=== PATIENT | male | born 1960 | race Hispanic/Latino ===

== ENCOUNTER 2017-10-11 12:43 | Emergency (ER) | payer OTHER ==
[~2017-10-11] VITALS: Ht 165.1 cm; Wt 55.0 kg
[~2017-10-11 12:43] MED LIST: ULTRAM50 MG OR
[2017-10-11] MEDS ORDERED: NAPROSYN500 MG PO (14:06)
[2017-10-11 14:07] VITALS: BP 124/79
== END 2017-10-11 14:12 | disposition home or self-care (01) ==
LOC: ED 12:43
DX: S20.212A Contusion of left front wall of thorax, initial encounter (principal); F17.210 Nicotine dependence, cigarettes, uncomplicated; W17.89XA Other fall from one level to another, initial encounter; Y93.89 Activity, other specified; Y92.009 Unspecified place in unspecified non-institutional (private) residence as the place of occurrence of the external cause

== ENCOUNTER 2019-11-03 09:29 | Observation (INO) | payer OTHER ==
[~2019-11-03] VITALS: Ht 162.6 cm; Wt 61.9 kg
[~2019-11-03 09:29] MED LIST changes: +AUGMENTIN875 MG OR; +BACTRIM DS1 TAB PO; +CLEOCIN300 MG PO; +FLEXERIL OR; +NAPROSYN500 MG OR; +NAPROSYN500 MG PO; +NO MEDS
--- NOTE | 2019-11-03 09:30 | NUR ---
PT AMBULATED TO ROOM WITH WRIST AND LEG SHACKELS IN NO DISTRESS.
[2019-11-03] MEDS ORDERED: LASIX 40 MG TAB40 MG PO (09:51)
[2019-11-03] MEDS ORDERED: OLANZAPINE5 MG PO (09:52)
[2019-11-03] MEDS ORDERED: MELOXICAM15 MG PO (09:52)
--- NOTE | 2019-11-03 09:53 | NUR ---
[facility] CALLED AND MEDSD VERIFIED WITH NURSE FROM [facility]
--- NOTE | 2019-11-03 10:14 | NUR ---
PT STATES HAD SOME SOB INCREASING WITH LYING FLAT FOR LAST WEEK, TELE SHOWS SR SB RATE 41-60'S BP STABLE AND PT AFEBRILE, AWARE OF BRADYCARDIA, LAB WORK DRAWN AND R.T. CURRENTLY AT BEDSIDE FOR ABG.
[2019-11-03 10:16] LABS: HEMATOCRIT 39.2 % (39.0-50.0); HEMOGLOBIN 11.8 g/dl (14.0-18.0); IMMATURE GRANULOCYTES 0.4 % (0.0-5.0); MEAN CELL VOLUME 87.5 fL CALC (80.0-100.0); MEAN CORPUSCULAR HGB 26.3 pG CALC (26.0-32.0); MEAN CORPUSCULAR HGB CONC 30.1 g/dL CAL (32.0-36.0); NEUT# 5.56 thou/uL (1.82-7.42); RED BLOOD COUNT 4.48 mill/uL (4.70-6.10); RED CELL DISTRI WIDTH 14.5 % (11.5-15.5)
[2019-11-03 10:33] LABS: ALBUMIN 4.2 g/dL (3.2-5.0); ALKALINE PHOSPHATASE 75 u/l (38-126); BUN 17 mg/dL (9-20); BUN/CREATININE RATIO 18 (12-20 (CALC)); CHLORIDE 104 mmol/l (95-108); CREATININE 0.9 mg/dL (0.7-1.3); GFR > 60 ML/MIN (>=60 (CALC)); GFR FOR AFR.AMER. > 60 ML/MIN (>=60 (CALC)); POTASSIUM 4.1 mmol/l (3.5-5.1); SGOT/AST 22 u/l (17-59); SODIUM 139 mmol/l (137-146)
[2019-11-03 10:34] LABS: ANION GAP 10 (6-22 (CALC)); BILIRUBIN, TOTAL 1.3 mg/dL (0.0-1.4); CARBON DIOXIDE 29 mmol/l (22-30)
[2019-11-03 10:43] LABS: MYOGLOBIN 63 ng/mL (0 - 121)
--- NOTE | 2019-11-03 10:45 | NUR ---
PT RESTING GUARD REMAINS AT BEDSIDE CALL AUBREE MONZON, WILL CONTINUE TO MONITOR.
--- NOTE | 2019-11-03 11:30 | NUR ---
MD AWARE OF ABG RESULTS, PT REMAINS RESTING COMFORTQABLEY AWARE OF AWIATING RADIOLOGY RESULTS, GUARD REMAINS AT BEDSIDE
--- NOTE | 2019-11-03 12:15 | NUR ---
URINA; EMPTIED OF 100ML CLEAR YELLOW URINE, PT REQUESTING FOOD NOTIFIED
--- NOTE | 2019-11-03 12:20 | NUR ---
DIET ORDERED PT NOTIFIED
--- NOTE | 2019-11-03 12:26 | NUR ---
PT AWARE OF PLANNED ADMISSION
--- NOTE | 2019-11-03 12:45 | NUR ---
PT TOLERATED 100% OF LUNCH WITH NO COMPLAINTS, CALL AUBREE AMANDA REACH
--- NOTE | 2019-11-03 13:22 | NUR ---
REPORT CALLED TO LATISHA GIBBONS, ROOM 277 ASSIGNED.
--- NOTE | 2019-11-03 13:35 | NUR ---
PT ARRIVED TO MED/SURG ROOM 277 VIA WHEELCHAIR ACCOMPANIED BY X1 RICHIE AND JULIEN LORENZO;PT AMBULATED TO STANDING SCALE AND BEDSIDE WITH A STEADY GAIT;WT AND VS OBTAINED BY SURI SIDHU;PT A&O X3,ORIENTED TO ROOM AND CALL LIGHT SYSTEM;PT DENIES ANY CURRENT PAIN OR NEEDS;TELE MONITORING IN PLACE;PT ENCOURAGED TO CALL FOR ASSISTANCE IF NEEDED;FALL PRECAUTIONS IN PLACE WITH CALL LIGHT IN REACH;WILL CONTINUE TO MONITOR
--- NOTE | 2019-11-03 13:35 | NUR ---
PT TRASNPORTED TO MED SURG VIA WHEELCHAIR WITH GUARD AT SIDE AND TELE IN PLACE, ACCEPTING NURSE AT BEDSIDE ON ARRIVAL
--- NOTE | 2019-11-03 13:45 | NUR ---
PT RESTING IN BED AWAKE. PT IS ALERT AND ORIENTED X3. ADMISSION ASSESMENT COMPLETED AT THIS TIME. IV PATENT X1. PT STATES "I THINK I ATE TO MUCH SOUP AND THAT IS WHY I AM HERE". PT DENIES PMH, STATES THAT HE HAS A LONG HISTORY OF DRUG ABUSE AND ETOH ABUSE PRIOR TO CUSTODIAL. PT HAS 1 ANKLE SHACKLED AND GUARD AT BEDSIDE. ORIENTED PT TO ROOM AND CALL LIGHT SYSTEM. PT VERBALIZED UNDERSTANDING. CALL LIGHT IN REACH. WILL CONTINUE TO MONITOR.
[2019-11-03 13:50] VITALS: BP 140/76
[2019-11-03 15:33] VITALS: BP 127/64
--- NOTE | 2019-11-03 15:35 | NUR ---
PT RESTING IN SEMI FOWLERS POSITION WITH X1 GUARD AT BEDSIDE AND RIGHT ANKLE SHACKLED TO BEDSIDE;RESPIRATIONS EVEN AND UNLABORED ON RA;PT DENIES ANY CURRENT PAIN OR NEEDS;TELE MONITORING IN PLACE;PT DENIES ANY ADDITIONAL NEEDS AND IS ENCOURAGED TO CALL FOR ASSISTANCE IF NEEDED;ASSESSMENT REMAINS UNCHANGED AT THIS TIME;ENCOURAGED TO CALL FOR ASSISTANCE IF NEEDED;CALL LIGHT IN REACH;WILL CONTINUE TO MONITOR
[2019-11-03 19:00] VITALS: BP 114/63
--- NOTE | 2019-11-03 19:00 | NUR ---
REPORT RECEIVED FROM Laurie REBOLLEDO LPN, CARE OF PT ASSUMED AT THIS TIME.
--- NOTE | 2019-11-03 20:15 | NUR ---
PT RESTING IN BED, SHACKLED TO BED WITH ESCROW MANAGER AT BEDSIDE. PHYSICAL ASSESMENT COMPLETE. SCHEDULED MEDICATIONS ADMINISTERED, SEE E-MAR. PLAN OF CARE REVIEWED, PT VERBALIZES UNDERSTANDING AND DENIES QUESTIONS. ORANGE JUICE PROVIDED PER PTS REQUEST. DENIES FURTHER NEEDS AT THIS TIME. CALL MAK WITHIN REACH, AGREES TO CALL PRN.
[2019-11-04] VITALS: BP 116/57
--- NOTE | 2019-11-04 00:03 | NUR ---
PT SITTING UP IN BED, WATCHING TV. ORANGE JUICE AND FRESH WATER PROVIDED PER PTS REQUEST. DENIES FURTHER NEEDS AT THIS TIME. REMAINS SHACKLED TO BED WITH FUSE MAKER AT BEDSIDE. CALL MAK WITHIN REACH, AGREES TO CALL PRN.
--- NOTE | 2019-11-04 00:06 | NUR ---
PT APPEARS TO BE SLEEPING COMOFORTABLY, NO APPARENT DISTRESS, RESPIRATIONS REGUALR AND UNLABORED. CALL MAK REMAINS WITHIN REACH.
[2019-11-04 04:00] VITALS: BP 115/65
--- NOTE | 2019-11-04 05:31 | NUR ---
PT RESTING IN BED. REMAINS SHACKLED TO BED WITH CORRECETIONAL OFFICER AT BEDSIDE. DENIES NEEDS AT THIS TIME. CALL MAK WITHIN REACH, AGREES TO CALL PRN.
[2019-11-04 06:17] LABS: HEMATOCRIT 36.2 % (39.0-50.0); HEMOGLOBIN 11.1 g/dl (14.0-18.0); IMMATURE GRANULOCYTES 0.2 % (0.0-5.0); MEAN CELL VOLUME 86.4 fL CALC (80.0-100.0); MEAN CORPUSCULAR HGB 26.5 pG CALC (26.0-32.0); MEAN CORPUSCULAR HGB CONC 30.7 g/dL CAL (32.0-36.0); NEUT# 5.04 thou/uL (1.82-7.42); RED BLOOD COUNT 4.19 mill/uL (4.70-6.10); RED CELL DISTRI WIDTH 14.2 % (11.5-15.5)
[2019-11-04 06:40] LABS: ALBUMIN 3.5 g/dL (3.2-5.0); ALKALINE PHOSPHATASE 71 u/l (38-126); ANION GAP 10 (6-22 (CALC)); BILIRUBIN, TOTAL 1.1 mg/dL (0.0-1.4); BUN 27 mg/dL (9-20); BUN/CREATININE RATIO 24 (12-20 (CALC)); CALCULATED LDLCHOLESTEROL 85 mg/dL (62-129 (CALC)); CARBON DIOXIDE 25 mmol/l (22-30); CHLORIDE 106 mmol/l (95-108); CHOLESTEROL HDL RATIO 5.6 (<4.4 (CALC)); CREATININE 1.1 mg/dL (0.7-1.3); GFR > 60 ML/MIN (>=60 (CALC)); GFR FOR AFR.AMER. > 60 ML/MIN (>=60 (CALC)); HDL CHOLESTEROL 28 mg/dL (>=40); POTASSIUM 4.2 mmol/l (3.5-5.1); SGOT/AST 17 u/l (17-59); SODIUM 136 mmol/l (137-146); TOTAL CHOLESTEROL 156 mg/dl (0-199); TOTAL TRIGLYCERIDES 213 mg/dl (30-149); VLDL CHOLESTROL 43 mg/dl (4-45 (CALC))
[2019-11-04 08:13] VITALS: BP 123/58
--- NOTE | 2019-11-04 08:13 | NUR ---
ASSESSMENT AND VITALS COMPLETED AT THIS TIME.PT IS A/O X3. PT FROM [facility], GUARD PRESENT. BP 123/58, HR 48, O2 93% ON ROOM AIR. PT COMPLAINS OF SOB WHEN DEEP BREATHING. RESPIRATIONS ARE EVEN AND UNLABORED WITH NO SIGNS WITH NO SIGNS OF DISTRESS NOTED. LUNGS SOUNDS HAVE DIMINISHED CRACKLES IN LOWER LOBES UPON ASCULTATING. BOWLE SOUNDS ARE ACTIVE IN ALL QUADRANTS, LAST REPORTED BM 11/03/2019. RADIAL AND PEDAL PULSES ARE STRONG WITH NORMAL CAPILLARY REFILL. #20 IN LAC RUNNING WITH NS PER ORDER, SITE APPEARS HEALTHY AND PATENT.PT PRESENTS WITH BANDAIDS ON LEFT LEG. UPON REMOVING, ABRASIONS WITH GREEN DRAINAGE WAS PRESENT. PT STATES " I HAD STENTS PUT IN A COUPLE YEARS AGO AND ITS DONE THAT EVER SINCE." TO BE NOTIFIED. RIGHT LEG SHACKLED TO BED. SKIN IS WARM AND DRY. PT DENIES ANY PAIN OR DISCOMFORTS AT THIS TIME. ALL SAFETY PRECAUTIONS REMAIN IN PLACE WITH CALL LIGHT IN REACH AND GUARD AT BEDSIDE.WILL CONTINUE TO MONITOR
--- NOTE | 2019-11-04 09:27 | NUR ---
DR MENSAH AND REGINE, ANRP AT BEDSIDE DISCUSSING POC WITH PT. GUARD AT BEDSIDE
[2019-11-04 12:00] VITALS: BP 118/62
--- NOTE | 2019-11-04 12:30 | NUR ---
PT SLEEPING IN LOW FOWLERS POSITION UPON ENTERING ROOM. RESPIRATIONS ARE EVEN AND UNLABORED WITH NO SIGNS OF DISTRESS NOTED. 700 ML OF CLEAR YELLOW URINE EMPTIED FROM URINAL. RIGHT LEG REMAINS SHACKLED TO BED WITH GAURD AT BEDSIDE. NO SIGNS OF ANY APIN OR DISCOMFORTS. ALL SAFETY PRECAUTIONS REAMIN IN PLACE WITH CALL LIGHT IN REACH. WILL CONTINUE TO MONITOR.
--- NOTE | 2019-11-04 14:42 | NUR ---
WRITTER NOTIFIED BY ER TELE MONITORING THAT PT HEART RATE DROPPED TO 39. PT HAS BEEN RUNNING SINUS AURELIA. UPON ENTERING ROOM PT IS SLEEPING. PT EASY TO AWAKEN. PT STATED "EVERY TIME I GO TO SLEEP". PT DENIES ANY PAIN OR DISCOMFORTS. ALL SAFETY PRECAUTIONS ARE IN PLACE WITH CALL LIGHT IN REACH. WILL CONTINUE TO MONITOR
[2019-11-04 15:09] VITALS: BP 106/58
--- NOTE | 2019-11-04 15:30 | NUR ---
DARYL, BLOOD BANK LABORATORY PROFESSIONAL AT BEDSIDE WITH PT.
--- NOTE | 2019-11-04 16:36 | NUR ---
PT RESTING IN SEMI FOWLERS POSITION WATCHING TV.PT IS A/O X3. RESPIRATIONS ARE EVEN AND UNLABORED WITH NO SIGNS OF DISTRESS NOTED. RIGHT LEG SHACKLED TO BED WITH GUARD AT BEDSIDE. PT DENIES ANY PAIN. ORANGE JUICE AND GRAM CRACKERS GIVEN TO PT UPON REQUEST. ALL SAFETY PRECAUTIONS ARE IN PLACE WITH CALL LIGHT IN REACH. WILL CONTINUE TO MONITOR.
[2019-11-04 18:30] VITALS: BP 120/56
--- NOTE | 2019-11-04 19:09 | NUR ---
DOCTORS NOTE STATES THAT ZYPREXA WILL BE DC. MEDICATION NOT DC IN [facility]AR. MD TO BE NOTIFIED.
--- NOTE | 2019-11-04 20:04 | NUR ---
ASSESSMENT COMPLETED. NO DISTRESS NOTED. RIGHT ANKLE WITH SHACKLE AND GUARD X1 AT BEDSIDE. ASSESSMENT COMPLETED. IV SITE PATENT AND SL TO LAC. BANDAIDS NOTED TO BLE AND PER PT. THESE ARE FROM NON -HEALING AREAS FROM STENT PLACEMENT A FEW YEARS AGO. DENIES NEEDS/PAIN. URINAL AT BEDSIDE; ENCOURAGED TO CALL FOR ANY NEEDS. WILL CONTINUE TO MONITOR.
[2019-11-05] VITALS: BP 111/57
--- NOTE | 2019-11-05 | NUR ---
RESTING IN BED WITH NO DISTRESS NOTED; GUARD AT BEDSIDE. ENCOURAGED TO CALL FOR ANY NEEDS. COFFEE PROVIDED.
--- NOTE | 2019-11-05 02:20 | NUR ---
PT. RESTING IN BED WATCHING TV, DENIES NEEDS. CALL LIGHT IS IN REACH.
[2019-11-05 03:30] VITALS: BP 95/60
--- NOTE | 2019-11-05 04:41 | NUR ---
PT. PROVIDED WITH A SNACK; GUARD AT BEDSIDE. BED SCALE WT OBTAINED. URINAL EMPTIED.
--- NOTE | 2019-11-05 07:35 | NUR ---
RECIEVED REPORT FROM JULIEN NICE. PT RESTING IN SEMI FOWLERS POSTIION UPON ENTERING ROOM. INTRODUCED SELF TO PT AND DISCUSSED POC. RESPIRATIONS ARE EVEN AND UNLABORED WITH NO SIGNS OF DISTRESS. PT DENIES ANY PAIN OR DISCOMFORTS AT THIS TIME. ALL SAFTEY PRECAUTIONS ARE IN PLACE. WILL CONTINUE TO MONITOR
[2019-11-05 08:05] VITALS: BP 119/64
--- NOTE | 2019-11-05 08:05 | NUR ---
ASSESSMENT AND VITALS COMPLETED AT THIS TIME.BP 119/64, HR 61, O2 95% ON ROOM AIR.PT IS A/O X3 AND FROM [facility]. RESPIRATIONS ARE EVEN AND UNLABORED WITH NO SIGNS OF DISTRSS NOTED. LUNG SOUNDS ARE CLEAR. HEART RHYTHM IS NORMAL. BOWEL SOUNDS ARE ACTIVE IN ALL QUADRANTS, LAST REPORTED BM 11/03/2019. RADIAL AND PEDAL PULSES ARE STRONG WITH NORMAL CAPILLARY REFILL.SHACKLE TO RIGHT ANKLE, #20 IN LAC FLUSHED, SITE APPEARS HEALTHY AND PATENT. PT PRESENTS WITH ABRSIONS ON LEFT KNEE WITH YELLOWISH DRAINAGE. PT INFORMS WRITTER THAT IT HAS BEEN HAPPENING FOR YEARS NOW. ABRASIONS CLEANED WITH NS AND BANDAIDES REAPPLIED. PT COMPLAINS OF 8/10 LOWER BACK PAIN, TYLENOL TO BE ADMOINISTERED. PT DENIES ANY ADDITIONAL NEEDS AT THIS TIME. ALL SAFETY PRECAUTIONS ARE IN PLACE WITH CALL LIGHT IN REACH AND GAURD AT BEDSIDE. WILL CONTINUE TO MONITOR
--- NOTE | 2019-11-05 09:39 | NUR ---
REASSESSMENT OF PAIN AT THIS TIME RESULTING IN 07/26. RESPIRATIONS ARE EVEN AND UNLABORED WITH NO SIGHS OF DISTRESS NOTED. ALL SFAETY PECAUTIONS REMAIN IN PLACE WITH CALL LIGHT IN REACH AND GUARD AT BEDSIDE. WILL CONTINUE TO MONITOR
[2019-11-05 09:59] LABS: HEMATOCRIT 37.4 % (39.0-50.0); HEMOGLOBIN 11.5 g/dl (14.0-18.0); IMMATURE GRANULOCYTES 0.2 % (0.0-5.0); MEAN CELL VOLUME 86.4 fL CALC (80.0-100.0); MEAN CORPUSCULAR HGB 26.6 pG CALC (26.0-32.0); MEAN CORPUSCULAR HGB CONC 30.7 g/dL CAL (32.0-36.0); NEUT# 4.02 thou/uL (1.82-7.42); RED BLOOD COUNT 4.33 mill/uL (4.70-6.10); RED CELL DISTRI WIDTH 14.1 % (11.5-15.5)
[2019-11-05 10:21] LABS: ANION GAP 11 (6-22 (CALC)); BUN 25 mg/dL (9-20); BUN/CREATININE RATIO 25 (12-20 (CALC)); CARBON DIOXIDE 28 mmol/l (22-30); CHLORIDE 104 mmol/l (95-108); GFR > 60 ML/MIN (>=60 (CALC)); GFR FOR AFR.AMER. > 60 ML/MIN (>=60 (CALC)); POTASSIUM 4.5 mmol/l (3.5-5.1); SODIUM 138 mmol/l (137-146)
--- NOTE | 2019-11-05 10:40 | NUR ---
DR CERVANTES AND REGINE, ANRP AT BEDSIDE
--- NOTE | 2019-11-05 10:44 | NUR ---
DR CERVANTES AND MARLENE, ANRP AT BEDSIDE DISCUSSING POC
--- NOTE | 2019-11-05 12:15 | NUR ---
PT RESTING IN SEMI FOWLERS POSITION WATCHING TV. RESPIRATIONS ARE EVEN AND UNLABORED WITH NO SIGNS OF DISTRESS NOTED. PT DENIES ANY PAIN OR DISCOMFORTS. RIGHT LEG SHACKLED TO BED WITH GAURD AT BEDSIDE. ALL SAFETY PRECAUTIONS ARE IN PLACE WITH CALL LIGHT IN REACH. WILL CONTINUE TO MONITOR
[2019-11-05] MEDS ORDERED: AMOX/K CLAV875 M1 PO (12:53)
[2019-11-05] MEDS ORDERED: ZESTRIL5 M1 PO (12:53)
--- NOTE | 2019-11-05 14:18 | NUR ---
PT EDUCATED ON DISCHARGED INSTRUCTIONS. PT VERBALIZED UNDERSTANDING. IV REMOVED WITH CATHATER STILL INTACT. PT TOLERATED WELL. TELE MONTIORING REMOVED. PT REQUESTED A "NOTE FROM THE DOCTOR STATING EXACTLY WHAT HE NEEDS SO HE CAN TURN IT INTO HIS SECURITY LEAD." WRITTER INFORMED PT THAT HE WOULD HAVE TO CONTACT MEDICAL RECORDS. PT VERBAILZED UNDERSTANDING.
--- NOTE | 2019-11-05 14:21 | NUR ---
Discharge instructions given. Patient verbalizes understanding of same. Discharged in stable condition via to Home with staff. All belongings sent with pt. PT DISCHARGED VIA WHEELCHAIR IN STABEL CONDITION ACCOMPAINED BY SURI SIDHU. PT TO BE TRANSPORTED BACK TO [facility].
--- NOTE | 2019-11-05 14:28 | NUR ---
REPORT GIVEN TO NURSE AT [facility]
== END 2019-11-05 14:25 | DRG 293 ==
LOC: ED 09:29 → MS2 12:01 → ED-I 12:12 → ED 12:12 → MS2 12:36
PROVIDERS: Emergency Medicine; Nurse Practitioner; ADMIT Internal Medicine; ATTEND Internal Medicine
DX: I50.9 Heart failure, unspecified (principal); I42.9 Cardiomyopathy, unspecified; F14.10 Cocaine abuse, uncomplicated; F15.10 Other stimulant abuse, uncomplicated; S81.802A Unspecified open wound, left lower leg, initial encounter; F17.200 Nicotine dependence, unspecified, uncomplicated; X58.XXXA Exposure to other specified factors, initial encounter; Z95.820 Peripheral vascular angioplasty status with implants and grafts; Z20.828 Contact with and (suspected) exposure to other viral communicable diseases
CPT/HCPCS: G0378; J1650

== ENCOUNTER 2020-04-15 22:46 | Emergency (ER) | payer OTHER ==
[~2020-04-15 22:46] MED LIST changes: +AMOX/K CLAV875 M1 PO; +LASIX 40 MG TAB40 MG PO; +MELOXICAM15 MG PO; +OLANZAPINE5 MG PO; +ZESTRIL5 M1 PO
== END 2020-04-15 23:22 | disposition left against medical advice (07) | DRG 951 ==
LOC: ED 22:46 → LWOBS 23:21
DX: Z53.21 Procedure and treatment not carried out due to patient leaving prior to being seen by health care provider (principal)

== ENCOUNTER 2020-10-16 12:07 | Inpatient (IN) | payer OTHER ==
[~2020-10-16] VITALS: Ht 162.6 cm; Wt 52.0 kg
[2020-10-16 14:37] LABS: IMMATURE GRANULOCYTES 0.6 % (0.0-5.0); MEAN CELL VOLUME 88.6 fL CALC (80.0-100.0); MEAN CORPUSCULAR HGB 28.5 pG CALC (26.0-32.0); MEAN CORPUSCULAR HGB CONC 32.2 g/dL CAL (32.0-36.0); NEUT# 3.11 thou/uL (1.82-7.42); RED BLOOD COUNT 5.68 mill/uL (4.70-6.10); RED CELL DISTRI WIDTH 13.1 % (11.5-15.5)
[2020-10-16 14:45] LABS: HEMATOCRIT 50.3 % (39.0-50.0); HEMOGLOBIN 16.2 g/dl (14.0-18.0)
[2020-10-16 15:05] LABS: ALBUMIN 3.7 g/dL (3.2-5.0); ALKALINE PHOSPHATASE 58 u/l (38-126); BUN 8 mg/dL (9-20); BUN/CREATININE RATIO 11 (12-20 (CALC)); CARBON DIOXIDE 29 mmol/l (22-30); CREATININE 0.8 mg/dL (0.7-1.3); GFR > 60 ML/MIN (>=60 (CALC)); GFR FOR AFR.AMER. > 60 ML/MIN (>=60 (CALC))
[2020-10-16 15:08] LABS: PROTHROMBIN TIME 10.4 SECONDS (9.0-12.5)
[2020-10-16 15:09] LABS: ANION GAP 11 (6-22 (CALC)); BILIRUBIN, TOTAL 0.3 mg/dL (0.0-1.4); CHLORIDE 92 mmol/l (95-108); POTASSIUM 3.7 mmol/l (3.5-5.1); SGOT/AST 38 u/l (17-59); SODIUM 128 mmol/l (137-146)
[2020-10-16 16:38] LABS: URINE BILIRUBIN - DIPSTICK NEGATIVE (NEGATIVE); URINE BLOOD DIPSTICK NEGATIVE (NEGATIVE); URINE COLOR YELLOW; URINE GLUCOSE - DIPSTICK NEGATIVE (NEGATIVE); URINE KETONE NEGATIVE (NEGATIVE); URINE LEUK ESTERASE NEGATIVE (NEGATIVE); URINE PH 6.5 (4.5-8.0); URINE PROTEIN - DIPSTICK NEGATIVE (NEG-TRACE); URINE SPECIFIC GRAVITY 1.015
[2020-10-16 16:40] LABS: URINE NITRITE - DIPSTICK NEGATIVE (Negative)
[2020-10-16 18:00] VITALS: BP 106/61
[2020-10-16 19:00] VITALS: BP 118/63
[2020-10-16 20:00] VITALS: BP 118/60
[2020-10-16 21:00] VITALS: BP 110/62
[2020-10-16 22:00] VITALS: BP 114/58
[2020-10-16 23:00] VITALS: BP 108/61
[2020-10-17] VITALS (9 sets, daily range): BP systolic 102–129; BP diastolic 51–67
[2020-10-17 07:18] LABS: HEMATOCRIT 49.1 % (39.0-50.0); HEMOGLOBIN 15.9 g/dl (14.0-18.0); MEAN CELL VOLUME 87.7 fL CALC (80.0-100.0); MEAN CORPUSCULAR HGB 28.4 pG CALC (26.0-32.0); MEAN CORPUSCULAR HGB CONC 32.4 g/dL CAL (32.0-36.0); RED BLOOD COUNT 5.6 mill/uL (4.70-6.10); RED CELL DISTRI WIDTH 12.9 % (11.5-15.5)
[2020-10-17 07:54] LABS: ANION GAP 8 (6-22 (CALC)); BUN 9 mg/dL (9-20); BUN/CREATININE RATIO 13 (12-20 (CALC)); CALCULATED LDLCHOLESTEROL 30 mg/dL (62-129 (CALC)); CARBON DIOXIDE 27 mmol/l (22-30); CHLORIDE 96 mmol/l (95-108); CHOLESTEROL HDL RATIO 2.1 (<4.4 (CALC)); CREATININE 0.6 mg/dL (0.7-1.3); GFR > 60 ML/MIN (>=60 (CALC)); GFR FOR AFR.AMER. > 60 ML/MIN (>=60 (CALC)); HDL CHOLESTEROL 37 mg/dL (>=40); MAGNESIUM 1.9 mg/dL (1.6-2.3); POTASSIUM 3.8 mmol/l (3.5-5.1); SODIUM 128 mmol/l (137-146); TOTAL TRIGLYCERIDES 60 mg/dl (30-149); VLDL CHOLESTROL 12 mg/dl (4-45 (CALC))
[2020-10-17 07:57] LABS: TOTAL CHOLESTEROL 79 mg/dl (0-199)
[2020-10-17] MEDS ORDERED: MOTRIN800 MG PO (09:59)
[2020-10-17] MEDS ORDERED: MORPHINE SUL15 MG PO (09:59)
[2020-10-17] MEDS ORDERED: HYDROMORPHON8 MG PO (09:59)
[2020-10-18 00:35] VITALS: BP 118/63
[2020-10-18 04:00] VITALS: BP 137/65
[2020-10-18 06:02] LABS: HEMATOCRIT 52.2 % (39.0-50.0); HEMOGLOBIN 16.5 g/dl (14.0-18.0); IMMATURE GRANULOCYTES 0.4 % (0.0-5.0); MEAN CELL VOLUME 89.2 fL CALC (80.0-100.0); MEAN CORPUSCULAR HGB 28.2 pG CALC (26.0-32.0); MEAN CORPUSCULAR HGB CONC 31.6 g/dL CAL (32.0-36.0); NEUT# 1.76 thou/uL (1.82-7.42); RED BLOOD COUNT 5.85 mill/uL (4.70-6.10)
[2020-10-18 06:42] LABS: ALBUMIN 3.3 g/dL (3.2-5.0); ALKALINE PHOSPHATASE 64 u/l (38-126); ANION GAP 13 (6-22 (CALC)); BUN 8 mg/dL (9-20); BUN/CREATININE RATIO 15 (12-20 (CALC)); C-REACTIVE PROTEIN 2.5 mg/dL (0-0.9); CARBON DIOXIDE 25 mmol/l (22-30); CHLORIDE 98 mmol/l (95-108); CREATININE 0.6 mg/dL (0.7-1.3); GFR > 60 ML/MIN (>=60 (CALC)); GFR FOR AFR.AMER. > 60 ML/MIN (>=60 (CALC)); POTASSIUM 4.3 mmol/l (3.5-5.1); SGOT/AST 32 u/l (17-59); SODIUM 132 mmol/l (137-146); TOTAL PROTEIN 6.3 g/dL (6.3-8.2)
[2020-10-18 08:01] VITALS: BP 113/58
[2020-10-18 12:00] VITALS: BP 132/63
[2020-10-18 15:10] VITALS: BP 125/60
[2020-10-18 19:00] VITALS: BP 120/55
[2020-10-19] VITALS (7 sets, daily range): BP systolic 101–126; BP diastolic 42–59
[2020-10-19 06:20] LABS: HEMATOCRIT 49.8 % (39.0-50.0); HEMOGLOBIN 15.8 g/dl (14.0-18.0); IMMATURE GRANULOCYTES 0.2 % (0.0-5.0); MEAN CELL VOLUME 89.6 fL CALC (80.0-100.0); MEAN CORPUSCULAR HGB 28.4 pG CALC (26.0-32.0); MEAN CORPUSCULAR HGB CONC 31.7 g/dL CAL (32.0-36.0); NEUT# 4.12 thou/uL (1.82-7.42); RED BLOOD COUNT 5.56 mill/uL (4.70-6.10); RED CELL DISTRI WIDTH 13.1 % (11.5-15.5)
[2020-10-19 07:04] LABS: ALKALINE PHOSPHATASE 55 u/l (38-126); ANION GAP 13 (6-22 (CALC)); BUN 12 mg/dL (9-20); BUN/CREATININE RATIO 19 (12-20 (CALC)); C-REACTIVE PROTEIN 1.5 mg/dL (0-0.9); CARBON DIOXIDE 26 mmol/l (22-30); CHLORIDE 98 mmol/l (95-108); CREATININE 0.6 mg/dL (0.7-1.3); GFR > 60 ML/MIN (>=60 (CALC)); GFR FOR AFR.AMER. > 60 ML/MIN (>=60 (CALC)); POTASSIUM 4.2 mmol/l (3.5-5.1); SGOT/AST 31 u/l (17-59); SODIUM 133 mmol/l (137-146); TOTAL PROTEIN 5.9 g/dL (6.3-8.2)
[2020-10-19 07:05] LABS: BILIRUBIN, TOTAL 0.2 mg/dL (0.0-1.4)
[2020-10-20 04:51] VITALS: BP 131/49
[2020-10-20 05:54] LABS: HEMATOCRIT 50.2 % (39.0-50.0); HEMOGLOBIN 15.9 g/dl (14.0-18.0); MEAN CELL VOLUME 89.8 fL CALC (80.0-100.0); MEAN CORPUSCULAR HGB 28.4 pG CALC (26.0-32.0); MEAN CORPUSCULAR HGB CONC 31.7 g/dL CAL (32.0-36.0); NEUT# 2.38 thou/uL (1.82-7.42); RED BLOOD COUNT 5.59 mill/uL (4.70-6.10)
[2020-10-20 06:12] LABS: ALBUMIN 3.1 g/dL (3.2-5.0); ALKALINE PHOSPHATASE 59 u/l (38-126); ANION GAP 12 (6-22 (CALC)); BILIRUBIN, TOTAL 0.2 mg/dL (0.0-1.4); BUN 15 mg/dL (9-20); BUN/CREATININE RATIO 24 (12-20 (CALC)); CARBON DIOXIDE 28 mmol/l (22-30); CHLORIDE 100 mmol/l (95-108); CREATININE 0.6 mg/dL (0.7-1.3); GFR > 60 ML/MIN (>=60 (CALC)); GFR FOR AFR.AMER. > 60 ML/MIN (>=60 (CALC)); MAGNESIUM 1.9 mg/dL (1.6-2.3); SGOT/AST 33 u/l (17-59); SODIUM 134 mmol/l (137-146); TOTAL PROTEIN 6.1 g/dL (6.3-8.2)
[2020-10-20 06:30] LABS: IMMATURE GRANULOCYTES 0.2 % (0.0-5.0)
[2020-10-20 08:10] VITALS: BP 145/65
[2020-10-20 10:30] VITALS: BP 125/60
[2020-10-20 15:33] VITALS: BP 109/56
[2020-10-20 20:00] VITALS: BP 111/48
[2020-10-21] VITALS: BP 124/70
[2020-10-21 04:00] VITALS: BP 105/41
[2020-10-21 05:35] LABS: HEMATOCRIT 49.5 % (39.0-50.0); HEMOGLOBIN 15.7 g/dl (14.0-18.0); IMMATURE GRANULOCYTES 0.3 % (0.0-5.0); MEAN CELL VOLUME 88.7 fL CALC (80.0-100.0); MEAN CORPUSCULAR HGB 28.1 pG CALC (26.0-32.0); MEAN CORPUSCULAR HGB CONC 31.7 g/dL CAL (32.0-36.0); NEUT# 3.27 thou/uL (1.82-7.42); RED BLOOD COUNT 5.58 mill/uL (4.70-6.10); RED CELL DISTRI WIDTH 13.1 % (11.5-15.5)
[2020-10-21 06:10] LABS: ALBUMIN 2.9 g/dL (3.2-5.0); ALKALINE PHOSPHATASE 56 u/l (38-126); ANION GAP 11 (6-22 (CALC)); BUN 17 mg/dL (9-20); BUN/CREATININE RATIO 33 (12-20 (CALC)); C-REACTIVE PROTEIN 0.9 mg/dL (0-0.9); CARBON DIOXIDE 24 mmol/l (22-30); CHLORIDE 103 mmol/l (95-108); CREATININE 0.5 mg/dL (0.7-1.3); GFR > 60 ML/MIN (>=60 (CALC)); GFR FOR AFR.AMER. > 60 ML/MIN (>=60 (CALC)); POTASSIUM 4.6 mmol/l (3.5-5.1); SGOT/AST 30 u/l (17-59); SODIUM 134 mmol/l (137-146); TOTAL PROTEIN 5.9 g/dL (6.3-8.2)
[2020-10-21 06:13] LABS: BILIRUBIN, TOTAL 0.3 mg/dL (0.0-1.4)
[2020-10-21 08:00] VITALS: BP 110/54
[2020-10-21 10:45] VITALS: BP 125/55
[2020-10-21] MEDS ORDERED: DECADRON2 MG PO (11:59)
[2020-10-21] MEDS ORDERED: ZPAK PO ×2 (11:59→14:47)
[2020-10-21] MEDS ORDERED: ASPIRIN REGULA325 M1 PO ×2 (14:07→14:47)
[2020-10-21 14:55] VITALS: BP 128/66
== END 2020-10-21 15:31 | disposition home or self-care (01) | DRG 177 ==
LOC: ED 12:07 → ED-I 16:03 → ED 18:07 → ED-I 18:08 → MS2 10-17 18:11
PROVIDERS: Nurse Practitioner; Physician Assistant Surgical; ADMIT Hospitalist; ATTEND Hospitalist
PROC: XW033E5 Introduction of Remdesivir Anti-infective into Peripheral Vein, Percutaneous Approach, New Technology Group 5 (ICD-10-PCS; principal; 2020-10-18)
DX: U07.1 COVID-19 (principal); J12.82 Pneumonia due to coronavirus disease 2019; J96.01 Acute respiratory failure with hypoxia; F17.290 Nicotine dependence, other tobacco product, uncomplicated; F19.10 Other psychoactive substance abuse, uncomplicated
CPT/HCPCS: J1650; Q9967